=== PATIENT | male | born 1940 | race Caucasian/White ===

== ENCOUNTER → 2020-09-07 | Outpatient (CLI) | payer MEDICARE ==
--- NOTE | 2020-09-07 13:01 | REPPI ---
INDICATION: ELEVATED PSA. COMPARISON: None. TECHNIQUE: Transrectal prostate ultrasound performed, with ultrasound guidance provided for Dr. Ignacio who performed ultrasound-guided biopsy. FINDINGS: Prostate measures 4.0 x 3.8 x 5.7 cm, total volume 45.8 mL. A nodule is seen in the right mid anterior prostate 11 x 7 mm, another in the right anterior base 4 x 3 mm and another in the left lateral apex 5 x 4 mm. Seminal vesicles are symmetrical. IMPRESSION: Prostate ultrasound as above, ultrasound guidance was provided for Dr. Ignacio who performed ultrasound-guided biopsy of the prostate. <Electronically signed by Hao Dimas > 09/07/20 [id number]
== END ==
LOC: M SMT PRO 10:35
PROVIDERS: ATTEND Urology
DX: R97.20 Elevated prostate specific antigen [PSA] (principal)
CPT/HCPCS: 52000; 55700; 76872; 76942; G0416